=== PATIENT | female | born 1960 | race Caucasian/White ===

== ENCOUNTER 2018-09-30 19:08 | Inpatient (IN) | payer OTHER ==
--- NOTE | 2018-10-01 01:51 | HP ---
COWS - Scale Resting Pulse: 1= [place] 81-100 Sweatin= Beads of Sweat on Face Restless Observation: 5= Unable to Sit Still Pupil Size: 2= Moderately Dilated (Pupils = 5 mm) Bone or Joint Aches: 1= Mild Discomfort Runny Nose/ Eye Tearin= Runny Nose/Eyes GI Upset > 30mins: 2= Nausea/Diarrhea Tremor Observation: 4= Gross Tremor/Twitching Yawning Observation: 0= None Anxiety or Irritability: 1=Feels Anxious/Irritable Goose Flesh Skin: 0=Smooth Skin COWS Score: 21 CIWA Score - Admission Criteria [facility] Guidelines: Admission for Medically Managed Detox: Requires at least one of the followin. CIWA greater than 12 2. Seizures within the past 24 hours 3. Delirium tremens within the past 24 hours 4. Hallucinations within the past 24 hours 5. Acute intervention needed for co occurring medical disorder 6. Acute intervention needed for co occurring psychiatric disorder 7. Severe withdrawal that cannot be handled at a lower level of care (continued vomiting, continued diarrhea, abnormal vital signs) requiring intravenous medication and/or fluids 8. Admission ROS [facility] Chief Complaint: withdrawal symptoms from opiates Allergies/Adverse Reactions: Allergies Allergy/AdvReac Type Severity Reaction Status Date / Time diphenhydramine Allergy Verified 10/01/18 01:56 [From Benadryl] Penicillins Allergy Verified 10/01/18 01:56 History of Present Illness: 58 yof here for assistance with opioid use detox. States was started on pain medications after multiple surgeries and after several months of continued prescribed morphine medication. The prescribed morphine was discontinued 4 days ago and was prescribed hydromorphine and has been experiencing severe withdrawal symptoms. Hx heroin and cocaine use from age [age]. Denies current heroin or illicit drug use. States problems are all r/t prescription opiates, which she states she took as prescribed and has withdrawal symptoms when tried to stop. Denies alcohol or other substance use. Denies hx seizures, blackouts or overdoses. PMHx: COPD, Asthma, DM; HTN, Back pain, Elevated cholesterol, back infection ( on 2 antibiotics x 30 days) MHHx: Depression, insomnia. Denies thoughts of harming self or others. Patient Name: Ladan Arroyo Date: 1960 Address: [address] [place] [address] Sex: Female Rx Written Rx Dispensed Drug Quantity Days Supply Prescriber Name 09/15/2018 09/26/2018 hydromorphone 4 mg tablet 40 10 Cyn Garcia 08/27/2018 08/29/2018 morphine sulfate ir 15 mg tab 42 14 Adal Marshall MD 08/04/2018 08/08/2018 morphine sulfate ir 15 mg tab 56 14 Adal Marshall MD 07/15/2018 07/21/2018 morphine sulf er 60 mg tablet 30 15 Adal Marshall MD 07/15/2018 07/21/2018 morphine sulfate ir 15 mg tab 45 13 Adal Marshall MD 06/04/2018 06/12/2018 morphine sulfate ir 15 mg tab 84 14 Adal Marshall MD 06/10/2018 06/10/2018 morphine sulf er 60 mg tablet 56 28 Adal Marshall MD 05/21/2018 05/26/2018 morphine sulf er 60 mg tablet 14 7 Violetta Parham Alva 05/21/2018 05/22/2018 morphine sulfate ir 15 mg tab 20 7 Gerardo Parhamaela Ashley 05/15/2018 05/15/2018 morphine sulf er 60 mg tablet 21 7 Gerardo Parhamaela Alva 05/02/2018 05/02/2018 morphine sulf er 60 mg tablet 42 14 Merle De La Garza, ([employer] -[facility]) 04/18/2018 04/18/2018 morphine sulf er 60 mg tablet 42 14 Luisito Parhama Ashley 04/17/2018 04/17/2018 morphine sulfate ir 15 mg tab 84 14 Merle De La Garza ([employer] TECHNICIAN -[facility]) 02/01/2018 02/05/2018 oxycodone hcl 5 mg tablet 56 7 Shahram Fletcher 12/26/2017 01/01/2018 oxycodone-acetaminophen 7.5-325 mg tablet 42 14 Adal Marshall MD 11/05/2017 11/20/2017 oxycodone-acetaminophen 7.5-325 mg tablet 42 14 Adal Marshall MD Patient Name: Ladan Arroyo Date: 1960 Address: [address] [place] [id number] Sex: Female Rx Written Rx Dispensed Drug Quantity Days Supply Prescriber Name 02/17/2018 02/23/2018 hydromorphone 2 mg tablet 84 7 Adal Marshall MD 02/04/2018 02/07/2018 hydromorphone 2 mg tablet 84 7 Adal Marshall MD Exam Limitations: No Limitations - Ebola screening Have you traveled outside of the country in the last 21 days: No (N) Have you had contact with anyone from an Ebola affected area: No Have you been sick,other than usual withdrawal symptoms: No (Denies recent exposure to measles) Do you have a fever: No - Review of Systems Constitutional: Chills, Diaphoresis, Changes in sleep (Difficul;ty falling asleep) EENT: reports: Blurred Vision, Nose Congestion Respiratory: reports: No Symptoms reported Cardiac: reports: No Symptoms Reported GI: reports: Diarrhea, Nausea, Vomiting, Abdominal cramping : reports: No Symptoms Reported Musculoskeletal: reports: Back Pain (Chronic low back achy pain "7". Increases standing and walking. Improves sitting or laying down.), Muscle Pain ( Muscles spasms in (L) leg) Integumentary: reports: No Symptoms Reported Neuro: reports: Numbness ((L) leg numbness ankle to below knee), Tremors Endocrine: reports: No Symptoms Reported Hematology: reports: No Symptoms Reported Psychiatric: reports: Judgement Intact, Mood/Affect Appropiate, Orientated x3, Agitated, Anxious Patient History - PPD History Previous Implant?: Yes Documented Results: Negative w/o proof Implanted On Prior [facility] Admission?: Yes PPD to be Administered?: Yes - Smoking Cessation Smoking history: Current every day smoker Have you smoked in the past 12 months: Yes Hx Chewing Tobacco Use: No Initiated information on smoking cessation: Yes 'Breaking Loose' booklet given: 10/01/18 - Substance & Tx. History Hx Alcohol Use: No Hx Substance Use: Yes Substance Use Type: Prescribed (Prescribed morphine, hydromorphone) Hx Substance Use Treatment: No Admission Physical Exam BHS - Physical General Appearance: Yes: Nourished, Severe Distress, Tremorous, Irritable, Sweating (Beads of sweat), Anxious HEENTM: Yes: Normocephalic, Normal Voice, MIC (Pupils = 5 mm), Pharynx Normal Respiratory: Yes: Lungs Clear, Normal Breath Sounds, No Respiratory Distress Neck: Yes: No masses,lesions,Nodules, Supple Breast: Yes: Breast Exam Deferred Cardiology: Yes: Regular Rhythm, S1, S2, Tachycardia Abdominal: Yes: Non Tender, Soft, Increased Bowel Sounds, Protuberent ( Increased abdominal adiposity) Genitourinary: Yes: Within Normal Limits Back: Yes: Decreased Range of Motion, Vertebral Tenderness, Surgical Scar ( Several surgical scars - tender to touch. No increased erythema or induration) Musculoskeletal: Yes: Gait Steady Extremities: Yes: Normal Capillary Refill, Tremors Neurological: Yes: circular saw operator II-XII NML intact, Fully Oriented, Alert, Motor Strength 5/5 Integumentary: Yes: Normal Color, Warm Lymphatic: Yes: Within Normal Limits - Diagnostic (1) Opioid dependence with withdrawal Current Visit: Yes Status: Acute (2) Hyperlipidemia Current Visit: Yes Status: Chronic Qualifiers: Hyperlipidemia type: unspecified Qualified Code(s): E78.5 - Hyperlipidemia , unspecified (3) Essential (primary) hypertension Current Visit: Yes Status: Chronic (4) Muscle spasm Current Visit: Yes Status: Chronic (5) History of asthma Current Visit: Yes Status: Chronic (6) History of COPD Current Visit: Yes Status: Chronic (7) History of infection Current Visit: Yes Status: Chronic Comment: On long-term antibuiotic treatment Cleared for Admission [facility] - Detox or Rehab [facility] Level of Care: Medically Managed Detox Regimen/Protocol: Methadone Claeared for Rehab Admission: No Breathalyzer - Breathalyzer Breathalyzer: 0 Urine Drug Screen - Test Device Lot number: [id number] Expiration date: 06/26/20 - Control Is test valid?: Yes - Results Drug screen NEGATIVE: No Urine drug screen results: OXY-Oxycodone Inpatient Rehab Admission - Rehab Decision to Admit Inpatient rehab admission?: No
[2018-10-01] MEDS ORDERED: MENTHOL/PHENOL 1 EACH UD MM PRN (02:18)
[2018-10-01] MEDS ORDERED: NICOTINE POLACRILEX 2 MG GUM BUC PRN (02:18)
[2018-10-01] MEDS ORDERED: MAGNESIUM CITRATE 300 ML BOTTLE PO PRN (02:18)
[2018-10-01] MEDS ORDERED: cloNIDine HCL 0.1 MG TABLET PO PRN (02:18)
[2018-10-01] MEDS ORDERED: ACETAMINOPHEN 325 MG TABLET (FP) PO PRN (02:18)
[2018-10-01] MEDS ORDERED: MAGNESIUM HYDROX 2400MG/30ML ORAL SUSPENSION 30 ML CUP PO PRN (02:18)
[2018-10-01] MEDS ORDERED: IBUPROFEN 400 MG TABLET (FP) PO PRN ×2 (02:18→12:03)
[2018-10-01] MEDS ORDERED: METHADONE HCL 10 MG TABLET (FOR DETOX USE ONLY) PO ONE ×2 (02:18→10:00)
[2018-10-01] MEDS ORDERED: MELATONIN 5 MG TABLETS PO PRN (02:18)
[2018-10-01] MEDS ORDERED: BISMUTH SUBSALICYLATE 524 MG/30 ML UD PO PRN (02:18)
[2018-10-01] MEDS ORDERED: MAG HYDROX/AL HYDROX/SIMETH 30 ML UNIT-DOSE CUP PO PRN (02:18)
[2018-10-01] MEDS: INSULIN SLIDING SCALE (NOVOLOG) 1 VIAL SQ SCH ×4 (06:55→23:09)
--- NOTE | 2018-10-01 09:38 | EKG ---
Test Reason : Blood Pressure : / mmHG Vent. Rate : 073 BPM Atrial Rate : 073 BPM P-R Int : 190 ms QRS Dur : 100 ms QT Int : 374 ms P-R-T Axes : 064 033 049 degrees QTc Int : 412 ms NORMAL SINUS RHYTHM NORMAL ECG NO PREVIOUS ECGS AVAILABLE Confirmed by JIM ANGULO, DIEUDONNE ([id number]) on 10/01/2018 9:37:56 AM Referred By: NANETTE RUEDA Confirmed By:DIEUDONNE FERNANDEZ MD
--- NOTE | 2018-10-01 11:07 | PN ---
BHS COWS - Scale Resting Pulse: 0= [place] 80 or Below Sweatin=Flushed/Facial Moisture Restless Observation: 1= Difficult to Sit Still Pupil Size: 0= Normal to Room Light Bone or Joint Aches: 2= Severe Diffuse Aches Runny Nose/ Eye Tearin= Nasal Congestion GI Upset > 30mins: 0= None Tremor Observation of Outstretched Hands: 1= Tremor [place], Not Seen Yawning Observation: 2= >3x During Session Anxiety or Irritability: 2=Irritable/Anxious Goose Flesh Skin: 0=Smooth Skin COWS Score: 11 BHS Progress Note (SOAP) Subjective: tired sleepy sweats chills interrupted sleep anxiety low back pain muscle spasm constipation Objective: 10/01/18 11:06 Vital Signs Temperature 98.1 F 10/01/18 09:36 Pulse Rate 66 10/01/18 09:36 Respiratory Rate 18 10/01/18 09:36 Blood Pressure 152/88 10/01/18 09:36 O2 Sat by Pulse Oximetry (%) Laboratory Tests 10/01/18 06:49 POC Glucometer 122 rest of labs pending aaox3 lying in bed no acute distress Assessment: 10/01/18 11:06 withdrawal sx Plan: continue detox increase fluids lidocaine patch roboxone pending labs
[2018-10-01] MEDS: POSACONAZOLE PO SCH (11:08)
[2018-10-01] MEDS: NICOTINE 14 MG/24 HOURS TOPICAL PATCH TD SCH (11:08)
[2018-10-01] MEDS: PRENATAL VITAMINS W/ FOLIC ACID TABLET (FP) PO SCH (11:09)
[2018-10-01] MEDS: amLODIPine BESYLATE 5 MG TABLET (FP) PO SCH (11:09)
[2018-10-01] MEDS ORDERED: LIDOCAINE 5% TOPICAL PATCH TP ONE (12:36)
[2018-10-01] MEDS: ACETAMINOPHEN 325 MG TABLET (FP) PO PRN (14:27)
[2018-10-01] MEDS: METHOCARBAMOL 500 MG TABLET PO PRN (14:28)
[2018-10-01] MEDS: CEFADROXIL 500 MG PO SCH (15:30)
--- NOTE | 2018-10-01 16:26 | PN ---
[facility] Progress Note Note: pt was consulted about her allergy to penicillins. pt is currently prescribed ABX (cefadroxil) which pt brought from home and has been taking it with no side effect. pt states she doesn't even know why she is allergic to penicillins but will continue to take the medication that was prescribed by her MD.
[2018-10-01] MEDS: POLYETHYLENE GLYCOL 3350 119 GM BTL PO PRN (18:48)
[2018-10-01] MEDS: diazePAM 5 MG TABLET PO PRN (20:30)
[2018-10-01] MEDS: LIDOCAINE PATCH REMOVAL MC SCH (21:17)
[2018-10-01] MEDS: ATORVASTATIN CA 10 MG TABLET (FP) PO SCH (23:11)
[2018-10-01] MEDS: THIAMINE HCL 100 MG TABLET (FP) PO SCH (23:11)
[2018-10-02] MEDS: ACETAMINOPHEN 325 MG TABLET (FP) PO PRN (06:15)
[2018-10-02] MEDS: METHOCARBAMOL 500 MG TABLET PO PRN (06:15)
[2018-10-02] MEDS: INSULIN SLIDING SCALE (NOVOLOG) 1 VIAL SQ SCH ×4 (06:53→22:43)
[2018-10-02] MEDS: POSACONAZOLE PO SCH (07:07)
[2018-10-02] MEDS ORDERED: BACLOFEN 10 MG TABLET (FP) PO ONE (09:25)
[2018-10-02] MEDS ORDERED: METHADONE HCL 10 MG TABLET (FOR DETOX USE ONLY) PO ONE (10:00)
[2018-10-02 10:20] LABS: HEMATOCRIT 31.7 % (32.4-45.2); HEMOGLOBIN 10.2 GM/dL (10.7-15.3); MCH 24.6 pg (25.7-33.7); MCHC 32.2 g/dl (32.0-36.0); MEAN CELL VOLUME 76.5 fl (80-96); MEAN PLT VOLUME 7.4 fl (7.5-11.1); PLATELET COUNT 275 K/MM3 (134-434); RBC 4.15 M/mm3 (3.60-5.2); WHITE BLOOD COUNT 6.3 K/mm3 (4.0-10.0)
[2018-10-02] MEDS: LIDOCAINE 5% TOPICAL PATCH TP SCH (10:37)
[2018-10-02] MEDS: NICOTINE 14 MG/24 HOURS TOPICAL PATCH TD SCH (10:37)
[2018-10-02] MEDS: CEFADROXIL 500 MG PO SCH (10:37)
[2018-10-02] MEDS: PRENATAL VITAMINS W/ FOLIC ACID TABLET (FP) PO SCH (10:38)
[2018-10-02] MEDS: amLODIPine BESYLATE 5 MG TABLET (FP) PO SCH (10:38)
[2018-10-02 10:48] LABS: ALBUMIN 3.4 g/dl (3.4-5.0); BILIRUBIN,TOTAL 0.3 mg/dL (0.2-1); CALCIUM 9.6 mg/dL (8.5-10.1); CREATININE 2.1 mg/dL (0.55-1.3); POTASSIUM 4.4 mmol/L (3.5-5.1); TOT PROT 6.6 g/dl (6.4-8.2)
--- NOTE | 2018-10-02 11:40 | PN ---
BHS COWS - Scale Resting Pulse: 1= [place] 81-100 Sweatin=Flushed/Facial Moisture Restless Observation: 1= Difficult to Sit Still Pupil Size: 0= Normal to Room Light Bone or Joint Aches: 2= Severe Diffuse Aches Runny Nose/ Eye Tearin= Nasal Congestion GI Upset > 30mins: 0= None Tremor Observation of Outstretched Hands: 1= Tremor [place], Not Seen Yawning Observation: 1= 1-2x During Session Anxiety or Irritability: 2=Irritable/Anxious Goose Flesh Skin: 0=Smooth Skin COWS Score: 11 BHS Progress Note (SOAP) Subjective: sweats shakes muscle spasms interrupted sleep body aches anxiety the muscle relaxant ordered for me yesterday is not helping, is there a different medication that can be ordered? Objective: 10/02/18 11:38 Vital Signs Temperature 97.6 F 10/02/18 09:32 Pulse Rate 91 H 10/02/18 09:32 Respiratory Rate 18 10/02/18 09:32 Blood Pressure 161/92 10/02/18 09:32 O2 Sat by Pulse Oximetry (%) Laboratory Tests 10/01/18 10/01/18 10/01/18 06:49 11:33 16:51 WBC RBC Hgb Hct MCV MCH MCHC RDW Plt Count MPV Sodium Potassium Chloride Carbon Dioxide Anion Gap BUN Creatinine Est GFR (CKD-EPI)AfAm Est GFR (CKD-EPI)NonAf POC Glucometer 122 132 123 Random Glucose Calcium Total Bilirubin AST ALT Alkaline Phosphatase Total Protein Albumin 10/02/18 10/02/18 10/02/18 06:12 07:30 07:30 WBC 6.3 RBC 4.15 Hgb 10.2 L Hct 31.7 L MCV 76.5 L MCH 24.6 L MCHC 32.2 RDW 19.0 H Plt Count 275 MPV 7.4 L Sodium 140 Potassium 4.4 Chloride 110 H Carbon Dioxide 24 Anion Gap 6 L BUN 36 H Creatinine 2.1 H Est GFR (CKD-EPI)AfAm 28.92 Est GFR (CKD-EPI)NonAf 24.95 POC Glucometer 95 Random Glucose 100 Calcium 9.6 Total Bilirubin 0.3 AST 14 L ALT 20 Alkaline Phosphatase 117 Total Protein 6.6 Albumin 3.4 labs noted aaox3 ambulating no acute distress Assessment: 10/02/18 11:39 withdrawal sx Plan: continue detox baclofen 10mg tid ordered increase fluids
[2018-10-02] MEDS: POLYETHYLENE GLYCOL 3350 119 GM BTL PO PRN (12:38)
[2018-10-02] MEDS: BACLOFEN 10 MG TABLET (FP) PO SCH ×2 (14:04→21:58)
[2018-10-02 15:00] LABS: EPI CELLS 0.7 /HPF (0-5/HPF); HYALINE CASTS 1 /lpf (0-8); URINE APPEARANCE CLEAR; URINE BACTERIA 2.2 /hpf (NEGATIVE); URINE BILIRUBIN NEGATIVE (NEGATIVE); URINE COLOR YELLOW; URINE GLUCOSE (UA) NEGATIVE (NEGATIVE); URINE KETONE NEGATIVE (NEGATIVE); URINE LEUK ESTERASE NEGATIVE (NEGATIVE); URINE NITRITE NEGATIVE (NEGATIVE); URINE PROTEIN 3+ (NEGATIVE); URINE RBC 1 /hpf (0-4); URINE UROBILINOGEN 0.2 mg/dL (0.2-1.0); URINE WBC 1 /hpf (0-5)
[2018-10-02] MEDS: THIAMINE HCL 100 MG TABLET (FP) PO SCH (21:58)
[2018-10-02] MEDS: ATORVASTATIN CA 10 MG TABLET (FP) PO SCH (21:58)
[2018-10-02] MEDS: diazePAM 5 MG TABLET PO PRN (22:01)
[2018-10-02] MEDS: LIDOCAINE PATCH REMOVAL MC SCH (22:43)
[2018-10-03] MEDS: BACLOFEN 10 MG TABLET (FP) PO SCH ×3 (06:23→22:12)
[2018-10-03] MEDS: ACETAMINOPHEN 325 MG TABLET (FP) PO PRN (06:23)
[2018-10-03] MEDS: INSULIN SLIDING SCALE (NOVOLOG) 1 VIAL SQ SCH ×4 (07:32→22:32)
[2018-10-03] MEDS: POSACONAZOLE PO SCH (07:34)
[2018-10-03] MEDS ORDERED: METHADONE HCL 10 MG TABLET (FOR DETOX USE ONLY) PO ONE (10:00)
[2018-10-03] MEDS: CEFADROXIL 500 MG PO SCH (10:15)
[2018-10-03] MEDS: PRENATAL VITAMINS W/ FOLIC ACID TABLET (FP) PO SCH (10:15)
[2018-10-03] MEDS: LIDOCAINE 5% TOPICAL PATCH TP SCH (10:16)
[2018-10-03] MEDS: NICOTINE 14 MG/24 HOURS TOPICAL PATCH TD SCH (10:17)
[2018-10-03] MEDS: amLODIPine BESYLATE 5 MG TABLET (FP) PO SCH (11:09)
--- NOTE | 2018-10-03 11:49 | PN ---
BHS COWS - Scale Resting Pulse: 0= [place] 80 or Below Sweatin=Flushed/Facial Moisture Restless Observation: 1= Difficult to Sit Still Pupil Size: 0= Normal to Room Light Bone or Joint Aches: 2= Severe Diffuse Aches Runny Nose/ Eye Tearin= None GI Upset > 30mins: 0= None Tremor Observation of Outstretched Hands: 1= Tremor [place], Not Seen Yawning Observation: 1= 1-2x During Session Anxiety or Irritability: 1=Feels Anxious/Irritable Goose Flesh Skin: 0=Smooth Skin COWS Score: 8 BHS Progress Note (SOAP) Subjective: sweats mild shakes interrupted sleep Objective: 10/03/18 11:48 Vital Signs Temperature 98.6 F 10/03/18 09:27 Pulse Rate 79 10/03/18 09:27 Respiratory Rate 18 10/03/18 09:27 Blood Pressure 118/73 10/03/18 09:27 O2 Sat by Pulse Oximetry (%) aaox3 ambulating no acute distress Assessment: 10/03/18 11:49 mild withdrawal sx Plan: continue detox increase fluids
[2018-10-03] MEDS: THIAMINE HCL 100 MG TABLET (FP) PO SCH (22:12)
[2018-10-03] MEDS: ATORVASTATIN CA 10 MG TABLET (FP) PO SCH (22:12)
[2018-10-03] MEDS: diazePAM 5 MG TABLET PO PRN (22:14)
[2018-10-03] MEDS: LIDOCAINE PATCH REMOVAL MC SCH (22:30)
[2018-10-04] MEDS: BACLOFEN 10 MG TABLET (FP) PO SCH (05:49)
[2018-10-04] MEDS: diazePAM 5 MG TABLET PO PRN (05:50)
[2018-10-04] MEDS: INSULIN SLIDING SCALE (NOVOLOG) 1 VIAL SQ SCH ×4 (06:38→22:57)
[2018-10-04] MEDS: POSACONAZOLE PO SCH (09:05)
[2018-10-04 09:41] VITALS: BP 151/93; PULSE 80; TEMP 98.1
[2018-10-04] MEDS ORDERED: METHADONE HCL 10 MG TABLET (FOR DETOX USE ONLY) PO ONE (10:00)
[2018-10-04] MEDS ORDERED: METHADONE (DETOX) 10 MG, METHADONE (DETOX) 5 MG PO ONE (10:00)
--- NOTE | 2018-10-04 10:51 | PN ---
[facility] Progress Note Note: during morning assessment and rounds pt was asked how she was doing, pt was awake and alert, but confused to name, place, time/year. Pt was asked simple commands (like , year, address, reason to why she is here) pt was unable to answer. V/S 153/86, pulse 69, BGM 137, 99%RA. Pt sent to [place] ED for evaluation for altered mental status; report given to Dr. Etienne.
[2018-10-04] MEDS: CEFADROXIL 500 MG PO SCH (11:14)
[2018-10-04] MEDS: LIDOCAINE 5% TOPICAL PATCH TP SCH (11:14)
[2018-10-04] MEDS: NICOTINE 14 MG/24 HOURS TOPICAL PATCH TD SCH (11:14)
[2018-10-04] MEDS: amLODIPine BESYLATE 5 MG TABLET (FP) PO SCH (11:15)
[2018-10-04] MEDS: PRENATAL VITAMINS W/ FOLIC ACID TABLET (FP) PO SCH (11:15)
[2018-10-04] MEDS: LIDOCAINE PATCH REMOVAL MC SCH (22:56)
[2018-10-04] MEDS: ATORVASTATIN CA 10 MG TABLET (FP) PO SCH (22:57)
[2018-10-04] MEDS: THIAMINE HCL 100 MG TABLET (FP) PO SCH (22:57)
[2018-10-05] MEDS ORDERED: METHADONE HCL 5 MG TABLET (FOR DETOX USE ONLY) PO ONE (06:00)
[2018-10-05] MEDS ORDERED: METHADONE HCL 10 MG TABLET (FOR DETOX USE ONLY) PO ONE (10:00)
[2018-10-06] MEDS ORDERED: METHADONE HCL 5 MG TABLET (FOR DETOX USE ONLY) PO ONE (06:00)
--- NOTE | 2018-10-06 10:49 | DS ---
[facility] Detox Discharge Summary Admission Date: 10/01/18 Discharge Date: 10/04/18 - History Present History: Opioid Dependence - Physical Exam Results Vital Signs: Vital Signs Temperature 98.1 F 10/04/18 09:40 Pulse Rate 80 10/04/18 09:40 Respiratory Rate 16 10/04/18 09:40 Blood Pressure 151/93 10/04/18 09:40 O2 Sat by Pulse Oximetry (%) - Medication Discharge Medications: Ambulatory Orders Amlodipine Besylate 5 mg PO DAILY 10/01/18 Atorvastatin Calcium 10 mg PO HS 10/01/18 Posaconazole [Noxafil] 3 tab PO DAILY 10/01/18 Diazepam [Valium] 10 mg PO Q4HWA PRN 10/04/18 Ibuprofen [Motrin -] 800 mg PO TID PRN 10/04/18 Thiamine HCl [B-1] 100 mg PO HS 10/04/18 Albuterol 2.5/Ipratropium 0.5 [Duoneb -] 1 amp NEB Q6H PRN #0 amp 10/06/18 Insulin Sliding Scale [Novolog Vial Sliding Scale -] 1 vial SQ ACHS units 10/06 - AMA Did Patient Leave Against Medical Advice: No ([facility] for evaluation d/c from out detox)
== END 2018-10-04 11:55 | disposition short-term general hospital (02) | DRG 897 ==
LOC: EDSEX → YASAS 19:08 → Y6N 10-01 01:56
PROVIDERS: ADMIT Surgery; ATTEND Surgery
PROC: HZ2ZZZZ Detoxification Services for Substance Abuse Treatment (ICD-10-PCS; principal; 2018-10-01)
DX: F11.23 Opioid dependence with withdrawal (principal); F17.210 Nicotine dependence, cigarettes, uncomplicated; I10 Essential (primary) hypertension; E78.5 Hyperlipidemia, unspecified; E78.00 Pure hypercholesterolemia, unspecified; E11.9 Type 2 diabetes mellitus without complications; Z79.4 Long term (current) use of insulin; M62.838 Other muscle spasm; J44.9 Chronic obstructive pulmonary disease, unspecified; M54.5 Low back pain; Z88.0 Allergy status to penicillin; Z88.8 Allergy status to other drugs, medicaments and biological substances; R41.82 Altered mental status, unspecified
CPT/HCPCS: 36415; 80053; 81003; 82962; 85027; 86593; 93005; 93010; J0475; J0735

== ENCOUNTER 2018-10-04 11:18 | Inpatient (IN) | payer OTHER ==
--- NOTE | 2018-10-04 11:23 | PDOC ---
History of Present Illness - General Stated Complaint: ALTERED MENTAL STATUS Time Seen by Provider: 10/04/18 11:22 - History of Present Illness Initial Comments: 10/04/18 13:00 The patient is a 58 year old female with a history of HTN, DM, CAD, Opiate abuse who presents for evaluation of altered mental status. The patient is currently in detox for opioid abuse. She was being evaluated today and was noted to be acutely altered and not oriented to place or time which was a change in her baseline prompting her presentation to the ED for further evaluation. Per the patient's , the patient is usually oriented x3 and otherwise normal, however after being placed on opioids after her back surgeries , she has been having periods of confusion. He noted that her symptoms improve on lower doses of opioids. ROS is unobtainable due to the patient's altered mental status. Past History - Past Medical History Allergies/Adverse Reactions: Allergies Allergy/AdvReac Type Severity Reaction Status Date / Time diphenhydramine Allergy Verified 10/01/18 01:56 [From Benadryl] Penicillins Allergy Verified 10/01/18 01:56 Home Medications: Ambulatory Orders Amlodipine Besylate 5 mg PO DAILY 10/01/18 Atorvastatin Calcium 10 mg PO HS 10/01/18 Cefadroxil 1 cap PO DAILY 10/01/18 Posaconazole [Noxafil] 3 tab PO DAILY 10/01/18 Diazepam [Valium] 10 mg PO Q4HWA PRN 10/04/18 Ibuprofen [Motrin -] 800 mg PO TID PRN 10/04/18 Thiamine HCl [B-1] 100 mg PO HS 10/04/18 Asthma: Yes Cardiac Disorders: Yes COPD: No Diabetes: Yes GI Disorders: No Disorders: No HTN: Yes (180/113) Kidney Stones: No Seizures: No - Surgical History Neurologic Surgery: No Orthopedic Surgery: Yes (BACK SURGERY 12/2017) - Reproductive History PID: No - Suicide/Smoking/Psychosocial Hx Smoking History: Current every day smoker Have you smoked in the past 12 months: Yes 'Breaking Loose' booklet given: 10/01/18 Hx Alcohol Use: No Drug/Substance Use Hx: Yes Substance Use Type: Prescribed (Prescribed morphine, hydromorphone) Hx Substance Use Treatment: No Review of Systems - Review of Systems Able to Perform ROS?: No (Altered Mental Status) *Physical Exam - Physical Exam Comments: 10/04/18 13:04 General Appearance: Nourished. No Apparent Distress HEENT: EOMI, MIC. No Pharyngeal Erythema, Tonsillar Exudate, Tonsillar Erythema Neck: No Cervical Lymphadenopathy Respiratory/Chest: Lungs Clear, Normal Breath Sounds. No Crackles, Rales, Rhonchi, Wheezing Cardiovascular: Regular Rhythm, Regular Rate. No Murmur, Gallops, Rubs Gastrointestinal/Abdominal: Normal Bowel Sounds, Soft. No Guarding, Rebound, Tenderness Musculoskeletal: No CVA Tenderness Extremity: Normal Capillary Refill Integumentary: Normal Color, Dry, Warm Neurologic: Oriented x1, Moving all Extremities equally. Follows some commands ED Treatment Course - LABORATORY CBC & Chemistry Diagram: 10/04/18 11:50 10/04/18 11:50 Medical Decision Making - Medical Decision Making 10/04/18 13:05 The patient is a 58 year old female with a history of HTN, DM, CAD, Opiate abuse who presents for evaluation of altered mental status. Differential includes but is not limited to:L Sepsis, Intracranial process, Substance use, Infectious, Metabolic Derangement. Given the patient's history and physical exam, we will obtain a cbc, cmp, troponin, lactate, blood cultures, ua, urine cultures, ekg, head ct, chest plain film, urine tox to evaluate further. We will continue to monitor and reassess while here in the ED. 10/04/18 18:13 CBC, cmp, troponin, lactate, UA are unremarkable. Head CT is unremarkable as read by our radiologist. Chest plain film is unremarkable as read by our radiologist. Urine tox is positive for methadone, opiates, and benzodiazpines. Given the patient's acute change in mental status and delirium, she will require admission for further management. We discussed the case with the admitting team who accepted the patient for admission. *DC/Admit/Observation/Transfer Diagnosis at time of Disposition: Acute delirium Altered mental status Qualifiers: Altered mental status type: unspecified Qualified Code(s): R41.82 - Altered mental status, unspecified - Discharge Dispostion Condition at time of disposition: Stable Decision to Admit order: Yes - Referrals - Patient Instructions - Post Discharge Activity
[2018-10-04] MEDS ORDERED: HALOPERIDOL LACTATE 5 MG/ML IM ONE ×3 (11:59→16:43)
[2018-10-04] MEDS ORDERED: LORazepam 2 MG/ML SDV VIAL ONE (12:02)
[2018-10-04 12:05] VITALS: BMI 29.1
--- NOTE | 2018-10-04 12:08 | PDOC ---
Attending Attestation - Resident Resident Name: José Etienne - ED Attending Attestation I have performed the following: I have examined & evaluated the patient, The case was reviewed & discussed with the resident, I agree w/resident's findings & plan, Exceptions are as noted - HPI HPI: 10/04/18 12:01 Ms albarran is a 58 yo F sent to the ER from [facility] for altered mental PT has a h/o COPD/Asthma, HTN, HLD, recent back surgery Pt h/o opiod use s/p surgery Pt became dependant on this and was [facility] Pt was admitted on - Physicial Exam PE: 10/04/18 12:38 GENERAL: The patient is in no acute distress, intermittently answering questions. HEAD: Normal EYES: PERRLA, EOMI, sclera anicteric, conjunctiva clear. ENT: Ears normal, nares patent, oropharynx clear without exudates. Moist mucous membranes. NECK: Normal range of motion, supple, no nuchal rigidity LUNGS: Breath sounds equal, clear to auscultation bilaterally. (+) wheezes, and no crackles. HEART:Regular rate and rhythm, normal S1 and S2 without murmur, rub or gallop. ABDOMEN: Soft, nontender, normoactive bowel sounds. No guarding, no rebound. EXTREMITIES: Normal range of motion, no edema. NEUROLOGICAL: Cranial nerves II through XII grossly intact. Normal speech. No focal neurological deficits. Intermittently falling asleep Intermittently agitated Pt got out of bed trying to leave her room Pt states she wants to leave MUSCULOSKELETAL: Back non-tender to palpation SKIN: Well healed midline lumbar spine scar , no surrounding erythema or drainage 10/04/18 12:59 - Medical Decision Making 10/04/18 12:08 EKG : NSR rate of 82 bpm, axis nml, intervals nml, no st elevation or depression , t waves upright Ms shelby is intermittently agitated She states that she is not crazy She says her husbands name and her name Pt does not admit to any additional substance use 10/04/18 12:[address] head CXR UA Pt agitated Refusing to comply with testing Haldol 5mg IM and Ativan 2mg IM given Awaiting CT 10/04/18 12:38 Pt repeatedly getting out of bed Pt called He states since being on opioids post operatively, she has had waxing and waning mental status Laboratory Tests 10/04/18 11:50 Urine Nitrite Negative Ur Leukocyte Esterase Negative Urine WBC (Auto) 0 Urine RBC (Auto) 2 10/04/18 12:47 [place] vest placed Pt repeatedly climbing out of bed She is intermittently somnolent and agitated 10/04/18 12:54 Laboratory Tests 10/04/18 11:50 Sodium 144 Potassium 3.9 Chloride 110 H Carbon Dioxide 25 BUN 29.3 H Creatinine 2.1 H Random Glucose 141 H Calcium 10.6 H 10/04/18 12:57 Laboratory Tests 10/04/18 11:32 Opiates Screen Positive A* Methadone Screen Positive A* Benzodiazepines Screen Positive A* 10/04/18 12:[address] 10/04/18 13:07 Received call from Brian at CT He was unable to do CT because pt was moving too much 10/04/18 13:[address] head pending 10/04/18 13:[address] - agitated Wanting to leave her bed Ketamine 40mg IV given 10/04/18 14:48 CONTACT INFORMATION: BAY SPENCER (SISTER) - [phone] SHILPA JESSICA (NIECE) - [phone] (CELL)
[2018-10-04 12:22] LABS: EPI CELLS 1.1 /HPF (0-5/HPF); HYALINE CASTS 5 /lpf (0-8); PH,URINE 6.5 (5.0-8.0); URINE APPEARANCE CLEAR; URINE BACTERIA 2.7 /hpf (NEGATIVE); URINE BILIRUBIN NEGATIVE (NEGATIVE); URINE COLOR YELLOW; URINE GLUCOSE (UA) NEGATIVE (NEGATIVE); URINE KETONE NEGATIVE (NEGATIVE); URINE LEUK ESTERASE NEGATIVE (NEGATIVE); URINE NITRITE NEGATIVE (NEGATIVE); URINE PROTEIN 3+ (NEGATIVE); URINE RBC 2 /hpf (0-4); URINE UROBILINOGEN 0.2 mg/dL (0.2-1.0); URINE WBC 0 /hpf (0-5)
[2018-10-04 12:26] LABS: BASO % 2.1 % (0-2.0); EOS % 3.7 % (0-4.5); HEMATOCRIT 33.9 % (32.4-45.2); LYMPH % 17.5 % (8-40); MCH 24.7 pg (25.7-33.7); MCHC 32.4 g/dl (32.0-36.0); MEAN CELL VOLUME 76.3 fl (80-96); MEAN PLT VOLUME 7.3 fl (7.5-11.1); MONO % 5.3 % (3.8-10.2); NEUT % 71.4 % (42.8-82.8); RBC 4.44 M/mm3 (3.60-5.2); RDW 18.8 % (11.6-15.6); WHITE BLOOD COUNT 7.3 K/mm3 (4.0-10.0)
[2018-10-04 12:35] LABS: COCAINE, UR NEGATIVE ng/ml (CUTOFF=300); PHENCYCLIDINE,URINE NEGATIVE ng/ml (CUTOFF=25); URINE AMPHETAMINES NEGATIVE ng/ml (CUTOFF=500); URINE BARBITURATES NEGATIVE ng/ml (CUTOFF=200)
[2018-10-04 12:41] LABS: ALBUMIN 4.1 g/dl (3.4-5.0); BILIRUBIN,TOTAL 0.2 mg/dL (0.2-1); BLOOD UREA NITROGEN 29.3 mg/dL (7-18); CALCIUM 10.6 mg/dL (8.5-10.1); CREATININE 2.1 mg/dL (0.55-1.3); POTASSIUM 3.9 mmol/L (3.5-5.1)
[2018-10-04 12:53] LABS: METHADONE, UR POSITIVE ng/ml (CUTOFF=300); OPIATES, URI POSITIVE ng/ml (CUTOFF=300); URINE BENZODIAZEPINES POSITIVE ng/ml (CUTOFF=200)
[2018-10-04 13:02] LABS: INR 1.06 (0.83-1.09); PROTHROMBIN TIME (PATIENT) 12.5 SEC (9.7-13.0)
[2018-10-04 13:05] LABS: ACTIVATED PTT 46.8 SECONDS (25.2-36.5)
[2018-10-04] MEDS ORDERED: KETAMINE HCL 200 MG/20 ML VIAL ONE (13:26)
[2018-10-04] MEDS ORDERED: KETAMINE HCL 200 MG/20 ML VIAL IVPUSH ONE ×2 (13:36→14:08)
[2018-10-04] MEDS ORDERED: OLANZapine 10 MG TABLET PO ONE (15:03)
[2018-10-04] MEDS ORDERED: OLANZapine 10 MG TABLET ONE (15:12)
--- NOTE | 2018-10-04 15:49 | HP ---
Admitting History and Physical - Primary Care Physician PCP: none - Admission Chief Complaint: agitation History of Present Illness: The patient is a 58 year old female with a history of HTN, DM, CAD, Opiate abuse who presents for evaluation of altered mental status. The patient is currently in detox for opioid abuse. She was being evaluated today and was noted to be acutely altered and not oriented to place or time which was a change in her baseline prompting her presentation to the ED for further evaluation. Per the patient's , the patient is usually oriented x3 and otherwise normal, however after being placed on opioids after her back surgeries , she has been having periods of confusion. He noted that her symptoms improve on lower doses of opioids. ROS is unobtainable due to the patient's altered mental status. History Source: Family Member Limitations to Obtaining History: Uncooperative, Other (severly agitated) - Past Medical History Cardiovascular: Yes: CAD, HTN Psych: Yes: Addictions (benzo/opoids/herione & cocaine in remote past) Endocrine: Yes: Diabetes Mellitus - Past Surgical History Additional Past Surgical History: unknown - Smoking History Smoking history: Current every day smoker (according to sister) Have you smoked in the past 12 months: Yes - Alcohol/Substance Use Hx Alcohol Use: No Home Medications - Allergies Allergies/Adverse Reactions: Allergies Allergy/AdvReac Type Severity Reaction Status Date / Time diphenhydramine Allergy Verified 10/01/18 01:56 [From Benadryl] Penicillins Allergy Verified 10/01/18 01:56 - Home Medications Home Medications: Ambulatory Orders Amlodipine Besylate 5 mg PO DAILY 10/01/18 Atorvastatin Calcium 10 mg PO HS 10/01/18 Cefadroxil 1 cap PO DAILY 10/01/18 Posaconazole [Noxafil] 3 tab PO DAILY 10/01/18 Diazepam [Valium] 10 mg PO Q4HWA PRN 10/04/18 Ibuprofen [Motrin -] 800 mg PO TID PRN 10/04/18 Thiamine HCl [B-1] 100 mg PO HS 10/04/18 Family Disease History - Family Disease History Family History: Unable to Obtain Review of Systems Unable to obtain ROS, reason: severly agitated Physical Examination Vital Signs: Vital Signs Temperature 97.8 F 10/04/18 12:06 Pulse Rate 100 H 10/04/18 15:17 Respiratory Rate 18 10/04/18 15:17 Blood Pressure 149/77 10/04/18 15:17 O2 Sat by Pulse Oximetry (%) 100 10/04/18 15:17 Constitutional: Yes: Well Nourished, Anxious, Diaphoresis, Severe Distress, Other (sweverly agitated) Eyes: Yes: WNL, Conjunctiva Clear, EOM Intact HENT: Yes: WNL, Atraumatic, Normocephalic Neck: Yes: WNL, Supple, Trachea Midline Cardiovascular: Yes: WNL, Regular Rate and Rhythm, Tachycardia Respiratory: Yes: WNL, Regular, CTA Bilaterally Gastrointestinal: Yes: WNL, Normal Bowel Sounds, Soft ...Rectal Exam: Yes: Deferred Renal/: Yes: WNL, Incontinence Breast(s): Yes: WNL Musculoskeletal: Yes: Other (no able to assess) Extremities: Yes: WNL Edema: No Peripheral Pulses WNL: Yes Integumentary: Yes: WNL Neurological: Yes: Other (severe agiatation) ...Motor Strength: WNL Psychiatric: Yes: Agitated Labs: CBC, BMP 10/04/18 11:50 10/04/18 11:50 Imaging - Results Chest X-ray: Report Reviewed (no effusion/infiltartes), Image Reviewed X-ray: Report Reviewed, Image Reviewed Cat Scan: Report Reviewed (HCT negative for acute pathology) EKG: Report Reviewed, Image Reviewed (QTc 389) Problem List - Problems (1) Diabetes Assessment/Plan: [facility] with Novolog sliding scale diabetic diet Code(s): E11.9 - TYPE 2 DIABETES MELLITUS WITHOUT COMPLICATIONS (2) Acute delirium Assessment/Plan: Patient severly agitated HCT negative Haldol/ativan/ketamine given in ER would avoid any further doses of ketamine secondary to dissociative effects Zyprex 10 mg PO x1 dose given with good response continue to mociotr qTc if additional dose is given tomorrow No benzo/opiods halodol 10mg IV -no stading dose placed-will dose on PRN basis consult placed for Dr Hunter place on 1:1 observation will order thiamine/MVI/Folate if able to take PO Code(s): R41.0 - DISORIENTATION, UNSPECIFIED (3) Opioid dependence with withdrawal Assessment/Plan: consult placed for Dr Hunter will appreciate any recommendations Code(s): F11.23 - OPIOID DEPENDENCE WITH WITHDRAWAL (4) Essential (primary) hypertension Assessment/Plan: normotensive at the moment will reasses need tomorrow Code(s): I10 - ESSENTIAL (PRIMARY) HYPERTENSION (5) History of COPD Assessment/Plan: inhaled broncholdilators as needed Code(s): Z87.09 - PERSONAL HISTORY OF OTHER DISEASES OF THE RESPIRATORY SYSTEM (6) History of asthma Code(s): Z87.09 - PERSONAL HISTORY OF OTHER DISEASES OF THE RESPIRATORY SYSTEM (7) Prophylactic measure Assessment/Plan: FEN regular diet no IVF needed unless pt does not take PO monitor electrolytes Dispo maintain as in patient most likely will be dc back to [facility] full code Code(s): Z29.9 - ENCOUNTER FOR PROPHYLACTIC MEASURES, UNSPECIFIED Visit type - Emergency Visit Emergency Visit: Yes ED Registration Date: 10/04/18 Care time: The patient presented to the Emergency Department on the above date and was hospitalized for further evaluation of their emergent condition. - New Patient This patient is new to me today: Yes Date on this admission: 10/04/18 - Critical Care Critical Care patient: No
[2018-10-04] MEDS ORDERED: ALBUTEROL SO4 2.5/IPRATROPIUM 0.5 INH SOL 3 ML VIAL.NEB. NEB PRN (15:59)
[2018-10-04] MEDS ORDERED: ACETAMINOPHEN 325 MG TABLET (FP) PO PRN (16:00)
--- NOTE | 2018-10-04 17:02 | EKG ---
Test Reason : Blood Pressure : / mmHG Vent. Rate : 082 BPM Atrial Rate : 082 BPM P-R Int : 186 ms QRS Dur : 092 ms QT Int : 374 ms P-R-T Axes : 077 056 058 degrees QTc Int : 436 ms NORMAL SINUS RHYTHM WITH SINUS ARRHYTHMIA NORMAL ECG WHEN COMPARED WITH ECG OF 01-OCT-2018 02:38, NO SIGNIFICANT CHANGE WAS FOUND Confirmed by DIEUDONNE FERNANDEZ MD ([id number]) on 10/04/2018 5:02:08 PM Referred By: Confirmed By:DIEUDONNE FERNANDEZ MD
[2018-10-04] MEDS: INSULIN SLIDING SCALE (NOVOLOG) 1 VIAL SQ SCH ×2 (17:48→22:26)
[2018-10-04 18:39] LABS: PLATELET COUNT 306 K/MM3 (134-434)
[2018-10-04] MEDS: THIAMINE HCL 100 MG TABLET (FP) PO SCH (22:36)
[2018-10-05] MEDS ORDERED: HALOPERIDOL LACTATE 5 MG/ML IM ONE (02:58)
[2018-10-05] MEDS: INSULIN SLIDING SCALE (NOVOLOG) 1 VIAL SQ SCH ×4 (06:26→21:49)
[2018-10-05 07:49] LABS: BASO % 0.4 % (0-2.0); EOS % 0.5 % (0-4.5); HEMATOCRIT 35.1 % (32.4-45.2); HEMOGLOBIN 11.6 GM/dL (10.7-15.3); LYMPH % 13.4 % (8-40); MCHC 33.2 g/dl (32.0-36.0); MEAN CELL VOLUME 75.2 fl (80-96); MEAN PLT VOLUME 7.4 fl (7.5-11.1); MONO % 5.8 % (3.8-10.2); NEUT % 79.9 % (42.8-82.8); RBC 4.67 M/mm3 (3.60-5.2); RDW 18.4 % (11.6-15.6); WHITE BLOOD COUNT 8.8 K/mm3 (4.0-10.0)
[2018-10-05 07:51] LABS: INR 1.07 (0.83-1.09); PROTHROMBIN TIME (PATIENT) 12.6 SEC (9.7-13.0)
[2018-10-05 08:12] LABS: ALBUMIN 4.3 g/dl (3.4-5.0); BILIRUBIN,TOTAL 0.4 mg/dL (0.2-1); CALCIUM 11.1 mg/dL (8.5-10.1); CREATININE 1.9 mg/dL (0.55-1.3); MAGNESIUM 2.3 mg/dL (1.8-2.4); POTASSIUM 4.1 mmol/L (3.5-5.1); TOT PROT 8.4 g/dl (6.4-8.2)
--- NOTE | 2018-10-05 10:22 | PN ---
Progress Note, Physician Chief Complaint: Sleeping after getting sedation - Current Medication List Current Medications: Active Medications Acetaminophen (Tylenol -) 650 mg PO Q6H PRN PRN Reason: Fever Or Pain Level 1 - 5 Albuterol/Ipratropium (Duoneb -) 1 amp NEB Q6H PRN PRN Reason: SHORTNESS OF BREATH Insulin Aspart (Novolog Vial Sliding Scale -) 1 vial SQ ACHS [facility]; Protocol Last Admin: 10/05/18 06:26 Dose: Not Given Thiamine HCl (Vitamin B1 -) 100 mg PO HS [facility] Last Admin: 10/04/18 22:36 Dose: Not Given - Objective Vital Signs: Vital Signs Temperature 99.0 F 10/05/18 10:15 Pulse Rate 81 10/05/18 10:15 Respiratory Rate 22 H 10/05/18 10:15 Blood Pressure 159/88 10/05/18 10:15 O2 Sat by Pulse Oximetry (%) 100 10/04/18 15:17 Young F not in distress sleepy HEENT: Mm moist, PERRLA EOMI NECK: No JVd No bRuit CHEST: CTA B/L CVS: s1S2 R ABD: No distention, non tender Bs + EXT; No shan afeet, no calf tenderness, Pulses + AGRICULTURAL PRODUCE SORTER: Delirious non focal Labs: CBC, BMP 10/05/18 06:32 10/05/18 06:32 INR, PTT INR 1.07 (0.83-1.09) 10/05/18 06:32 Problem List - Problems (1) Acute delirium Assessment/Plan: evaluted by the Neurolgy most likely witthdrawal from Narcotics, cont observation, PRN Librium IV Hydration, unlikely infectious etiology cont Thiamine Code(s): R41.0 - DISORIENTATION, UNSPECIFIED (2) Diabetes Code(s): E11.9 - TYPE 2 DIABETES MELLITUS WITHOUT COMPLICATIONS (3) Opioid dependence with withdrawal Assessment/Plan: Observe closely F/U addiction consult recommendations. Code(s): F11.23 - OPIOID DEPENDENCE WITH WITHDRAWAL (4) History of COPD Code(s): Z87.09 - PERSONAL HISTORY OF OTHER DISEASES OF THE RESPIRATORY SYSTEM (5) Essential (primary) hypertension Assessment/Plan: Well controlled cont all home meds Code(s): I10 - ESSENTIAL (PRIMARY) HYPERTENSION (6) History of asthma Code(s): Z87.09 - PERSONAL HISTORY OF OTHER DISEASES OF THE RESPIRATORY SYSTEM (7) Hyperlipidemia Assessment/Plan: Chronic no active issue Code(s): E78.5 - HYPERLIPIDEMIA, UNSPECIFIED Qualifiers: Hyperlipidemia type: unspecified Qualified Code(s): E78.5 - Hyperlipidemia , unspecified
[2018-10-05] MEDS ORDERED: diazePAM 5 MG TABLET PO PRN (10:23)
--- NOTE | 2018-10-05 10:49 | CON.NEURO ---
Consult - Past Medical History Cardio/Vascular: Yes: CAD, HTN Psych: Yes: Addictions (benzo/opoids/herione & cocaine in remote past) Endocrine: Yes: Diabetes Mellitus - Alcohol/Substance Use Hx Alcohol Use: No - Smoking History Smoking history: Current every day smoker (according to sister) Have you smoked in the past 12 months: Yes Home Medications - Allergies Allergies/Adverse Reactions: Allergies Allergy/AdvReac Type Severity Reaction Status Date / Time diphenhydramine Allergy Verified 10/01/18 01:56 [From Benadryl] Penicillins Allergy Verified 10/01/18 01:56 - Home Medications Home Medications: Ambulatory Orders Amlodipine Besylate 5 mg PO DAILY 10/01/18 Atorvastatin Calcium 10 mg PO HS 10/01/18 Cefadroxil 1 cap PO DAILY 10/01/18 Posaconazole [Noxafil] 3 tab PO DAILY 10/01/18 Diazepam [Valium] 10 mg PO Q4HWA PRN 10/04/18 Ibuprofen [Motrin -] 800 mg PO TID PRN 10/04/18 Thiamine HCl [B-1] 100 mg PO HS 10/04/18 Physical Exam-Neuro Vital Signs: Vital Signs Temperature 99.0 F 10/05/18 10:15 Pulse Rate 81 10/05/18 10:15 Respiratory Rate 22 H 10/05/18 10:15 Blood Pressure 159/88 10/05/18 10:15 O2 Sat by Pulse Oximetry (%) 100 10/04/18 15:17 Labs: CBC, BMP 10/05/18 06:32 10/05/18 06:32 INR, PTT INR 1.07 (0.83-1.09) 10/05/18 06:32 Assessment/Plan CC Confusion HPI 58 year old female history of HTN, DM, CAD , Opioid abuse came to hospital for altered mental status. There is no head injury, fever , headahce or seizure like activity. She is positive for methadone, benzo and opioids. Paitent was given haldol, ketamine , benzodiazepine and zyprexa PMH as above. SH,ROS,FH reviewd in chart Allergies: Allergies Allergy/AdvReac Type Severity Reaction Status Date / Time diphenhydramine Allergy Verified 10/01/18 01:56 [From Benadryl] Penicillins Allergy Verified 10/01/18 01:56 Home Medications: Amlodipine Besylate 5 mg PO DAILY 10/01/18 Atorvastatin Calcium 10 mg PO HS 10/01/18 Cefadroxil 1 cap PO DAILY 10/01/18 Posaconazole [Noxafil] 3 tab PO DAILY 10/01/18 Diazepam [Valium] 10 mg PO Q4HWA PRN 10/04/18 Ibuprofen [Motrin -] 800 mg PO TID PRN 10/04/18 Thiamine HCl [B-1] 100 mg PO HS 10/04/18 NEUROLOGICAL EXAMINATION Alert oriented x 0 , pateint is sleepy and on stimulus she opens eye and do not says too much no neck stiffness, eomi, pupils reactive, no face asymmetry moving all ext ct head is normal utox positive for benzo, opioids and methadone Assessment/Plan Acute delirium secondary to drug usage, clinically she may have underlying cognitive difficulty, depression and anxiety. Clinically unlikley to be status, meningitis or stroke at this time. Plan: b12,folate tsh - no need for spinal tap or mri of brain , EEG at this time - Continue supportive care - Consider psych consult Thnaking you so much Shane Wynn MD
[2018-10-05 13:44] LABS: PLATELET COUNT 327 K/MM3 (134-434)
[2018-10-05] MEDS: D5-1/2NS+10 MEQ KCL - 10 MEQ/1,000 ML INFUS.BAG IV SCH (17:14)
[2018-10-05] MEDS: THIAMINE HCL 100 MG TABLET (FP) PO SCH (21:46)
[2018-10-05] MEDS ORDERED: ATORVASTATIN CA 10 MG TABLET (FP) PO SCH (22:00)
[2018-10-06] MEDS: INSULIN SLIDING SCALE (NOVOLOG) 1 VIAL SQ SCH ×2 (07:09→11:57)
[2018-10-06 07:10] LABS: BASO % 0.7 % (0-2.0); EOS % 5.4 % (0-4.5); HEMATOCRIT 34.3 % (32.4-45.2); HEMOGLOBIN 11.2 GM/dL (10.7-15.3); LYMPH % 29.5 % (8-40); MCH 25.1 pg (25.7-33.7); MCHC 32.8 g/dl (32.0-36.0); MEAN CELL VOLUME 76.7 fl (80-96); MEAN PLT VOLUME 7.4 fl (7.5-11.1); MONO % 7.2 % (3.8-10.2); NEUT % 57.2 % (42.8-82.8); PLATELET COUNT 310 K/MM3 (134-434); RBC 4.47 M/mm3 (3.60-5.2); RDW 19.2 % (11.6-15.6); WHITE BLOOD COUNT 7.7 K/mm3 (4.0-10.0)
[2018-10-06 07:46] LABS: ALBUMIN 3.6 g/dl (3.4-5.0); BILIRUBIN,TOTAL 0.4 mg/dL (0.2-1); BLOOD UREA NITROGEN 23.9 mg/dL (7-18); CALCIUM 10.4 mg/dL (8.5-10.1); MAGNESIUM 2.2 mg/dL (1.8-2.4); TOT PROT 7.4 g/dl (6.4-8.2)
--- NOTE | 2018-10-06 09:47 | PN ---
Progress Note (short form) - Note Progress Note: 58 year old female history of HTN, DM, CAD , Opioid abuse came to hospital for altered mental status. There is no head injury, fever , headahce or seizure like activity. She is positive for methadone, benzo and opioids. Paitent was given haldol, ketamine , benzodiazepine and zyprexa. Patient is feeling much better, eating breakfast, still one to one. She is oriented x 3 . NEUROLOGICAL EXAMINATION Alert oriented x 3, speech is normal no neck stiffness, eomi, pupils reactive, no face asymmetry moving all ext ct head is normal tsh is normal b12,folate pending utox positive for benzo, opioids and methadone Assessment/Plan Acute delirium secondary to drug usage, clinically she may have underlying cognitive difficulty, depression and anxiety. Patient has clinically improved and now back to normal Plan: continue supportive care - Consider psych consult Thnaking you so much Shane Wynn MD
--- NOTE | 2018-10-06 09:48 | DS ---
Physical Examination Vital Signs: Vital Signs Temperature 97.6 F 10/06/18 04:00 Pulse Rate 70 10/06/18 04:00 Respiratory Rate 20 10/06/18 04:00 Blood Pressure 162/90 10/06/18 04:00 O2 Sat by Pulse Oximetry (%) 98 10/05/18 21:00 Elderly not in distress sleepy HEENT: Mm moist, PERRLA EOMI NECK: No JVd No bRuit CHEST: CTA B/L CVS: s1S2 R ABD: No distention, non tender Bs + EXT; No edema feet, no calf tenderness, Pulses + BILINGUAL OPERATOR: Alert oriented X3, non focal exam. Labs: CBC, BMP 10/06/18 06:00 10/06/18 06:00 Discharge Summary Reason For Visit: ACUTE DELIRIUM/ALTERED MENTAL STATUS Current Active Problems Acute delirium (Acute) Altered mental status (Acute) Diabetes (Acute) Prophylactic measure (Acute) Hospital Course: 58 yrs old F with H/O HTN, CAD, T2DM, Diabetic Nephropathy, CKD stage 3, chronic back pain ex Cocaine and ETOH abuse licves with , patient was transferred from [facility] there she was admitted for prescription narcotic Detox, patent received Methadone and Valium became Delirious and confused and she was agiatted , transferred to [facility] there she received Ketamine and Haldol with worsening Delirious admitted and observed , all labs are base line CT Head no acute changes, evaluated by Neurology recommended no further evaluation , unlikely infection etiology, Seizures or stroke, today am patient is alert oriented X3 ablle to recall all past, recent events clearly denies any hallucinations, delusion , no suicidal or homicidal ideation, patient diesnt want to go for Detox/Rehab will F/U with her pain management , patient is at bed side agrees with the plan. Condition: Stable - Instructions Diet, Activity, Other Instructions: Low Slat Diabetic You was admitted with altered Mental Status due to Narcotic withdrawal your Ct scan was normal and [facility] want to cont your treatment, but you have decided to go home to F/U with Pain management DR. Please revisit ED if you have any change in Mental status or discomfort.Resume all your home medications. Disposition: HOME - Home Medications Comprehensive Discharge Medication List: Ambulatory Orders Amlodipine Besylate 5 mg PO DAILY 10/01/18 Atorvastatin Calcium 10 mg PO HS 10/01/18 Posaconazole [Noxafil] 3 tab PO DAILY 10/01/18 Diazepam [Valium] 10 mg PO Q4HWA PRN 10/04/18 Ibuprofen [Motrin -] 800 mg PO TID PRN 10/04/18 Thiamine HCl [B-1] 100 mg PO HS 10/04/18 Albuterol 2.5/Ipratropium 0.5 [Duoneb -] 1 amp NEB Q6H PRN #0 amp 10/06/18 Insulin Sliding Scale [Novolog Vial Sliding Scale -] 1 vial SQ ACHS units 10/06
[2018-10-06] MEDS ORDERED: amLODIPine BESYLATE 5 MG TABLET (FP) PO SCH (10:00)
[2018-10-06] MEDS ORDERED: PT OWN MED DRAWER 7, Y5N ONE (10:08)
[2018-10-06] MEDS: D5-1/2NS+10 MEQ KCL - 10 MEQ/1,000 ML INFUS.BAG IV SCH (11:58)
[2018-10-06 13:34] VITALS: BP 164/78; PULSE 60; TEMP 97.8
== END 2018-10-06 13:49 | disposition home or self-care (01) | DRG 897 ==
LOC: JER 11:18 → JERBED 14:32 → J8W 15:57
PROVIDERS: ADMIT Internal Medicine; ATTEND Internal Medicine
DX: F11.23 Opioid dependence with withdrawal (principal); I25.10 Atherosclerotic heart disease of native coronary artery without angina pectoris; J44.9 Chronic obstructive pulmonary disease, unspecified; R41.0 Disorientation, unspecified; E78.5 Hyperlipidemia, unspecified; E11.21 Type 2 diabetes mellitus with diabetic nephropathy; E11.22 Type 2 diabetes mellitus with diabetic chronic kidney disease; I12.9 Hypertensive chronic kidney disease with stage 1 through stage 4 chronic kidney disease, or unspecified chronic kidney disease; N18.3 Chronic kidney disease, stage 3 (moderate); M54.9 Dorsalgia, unspecified; F14.10 Cocaine abuse, uncomplicated; F10.10 Alcohol abuse, uncomplicated; Z79.4 Long term (current) use of insulin
CPT/HCPCS: 36415; 70450-TC; 71045-TC-FY; 80053; 80307; 81003; 82140; 82150; 82607; 82747; 82962; 83605; 83690; 83735; 84443; 84484; 85014; 85025; 85610; 85730; 87040; 87086; 93005; 93010; 99282-25